=== PATIENT | male | born 1970 | race Caucasian/White ===

== ENCOUNTER 2020-12-23 13:25 | Emergency (ER) | payer OTHER ==
[~2020-12-23] VITALS: Ht 193 cm; Wt 105.3 kg
[2020-12-23] MEDS ORDERED: OMEP40CA4 PO (13:48)
[2020-12-23] MEDS ORDERED: CIPR7.5D5 AD (13:48)
[2020-12-23] MEDS ORDERED: CLIN150C15 PO (13:48)
[2020-12-23 16:09] VITALS: BP 150/92
== END 2020-12-23 16:26 | disposition home or self-care (01) ==
LOC: M ED 13:25
DX: H66.001 Acute suppurative otitis media without spontaneous rupture of ear drum, right ear (principal); Z88.0 Allergy status to penicillin